=== PATIENT | female | born 1940 | race Two or more races ===

== ENCOUNTER 2022-06-22 16:40 | Emergency (ER) | payer OTHER ==
[~2022-06-22] VITALS: Ht 144.8 cm; Wt 45.4 kg
[2022-06-22] MEDS ORDERED: CRESTOR10 MG (16:52)
[2022-06-22] MEDS ORDERED: NORVASC5 MG (16:52)
[2022-06-22] MEDS ORDERED: SYNTHROID75 MCG (16:52)
[2022-06-22] MEDS ORDERED: PLAVIX75 MG (16:52)
[2022-06-22] MEDS ORDERED: PROAIR RESPICL90 MCG (16:53)
[2022-06-22] MEDS ORDERED: ATACAND4 MG (16:53)
== END 2022-06-22 20:53 | disposition home or self-care (01) ==
LOC: ER 16:40
DX: M12.531 Traumatic arthropathy, right wrist (principal); W18.2XXA Fall in (into) shower or empty bathtub, initial encounter; Y92.012 Bathroom of single-family (private) house as the place of occurrence of the external cause; Z88.0 Allergy status to penicillin; Z88.6 Allergy status to analgesic agent; E03.9 Hypothyroidism, unspecified; I10 Essential (primary) hypertension

== ENCOUNTER 2022-09-27 08:30 | Day surgery (SDC) | payer OTHER ==
[~2022-09-27] VITALS: Ht 149.9 cm; Wt 47.6 kg
[~2022-09-27 08:30] MED LIST: ATACAND4 MG; CRESTOR10 MG; NORVASC5 MG; PLAVIX75 MG; PROAIR RESPICL90 MCG; SYNTHROID75 MCG
[2022-09-27] MEDS ORDERED: BACTRIM DS TAB1 EACH PO (15:16)
[2022-09-27] MEDS ORDERED: OXYC1TAB9 PO (15:16)
== END 2022-09-27 17:10 | disposition home or self-care (01) ==
LOC: CIR.AMB 08:30
PROVIDERS: ATTEND Orthopaedic Surgery Sports Medicine
DX: M75.121 Complete rotator cuff tear or rupture of right shoulder, not specified as traumatic (principal); S46.211A Strain of muscle, fascia and tendon of other parts of biceps, right arm, initial encounter; I10 Essential (primary) hypertension; E03.9 Hypothyroidism, unspecified; Z88.0 Allergy status to penicillin; Z88.6 Allergy status to analgesic agent; Z20.822 Contact with and (suspected) exposure to COVID-19

== ENCOUNTER 2024-09-20 12:19 | Emergency (ER) | payer OTHER ==
[~2024-09-20] VITALS: Ht 134.6 cm; Wt 41.7 kg
[~2024-09-20 12:19] MED LIST changes: +BACTRIM DS TAB1 EACH PO; +OXYC1TAB9 PO
[2024-09-20] MEDS ORDERED: HYDRALAZINE HCL50 MG (12:53)
[2024-09-20 12:58] VITALS: BP 180/90; O2SAT 100
[2024-09-20] MEDS ORDERED: ACETAMINOPHEN 500 MG GEL..CAP PO ONE (14:30)
[2024-09-20 16:09] LABS: HEMATOCRIT 35.5 % (36.0-45.00); MEAN CELL VOLUME 97.5 fL (80.00-100.00); MEAN CORPUSCULAR HEMOGLOBIN 32.9 pg (27.00-32.0); MEAN CORPUSCULAR HGB CONC 33.7 g/dl (32.0-36.0); PLATELET COUNT 155 K/uL (150-450); RED BLOOD COUNT 3.64 M/uL (4.00-6.00); RED CELL DISTRIBUTION WIDTH 14.7 % (11.5-14.5)
[2024-09-20 16:32] LABS: ALBUMIN 3.8 gm/dL (3.4-5.0); BILIRUBIN TOTAL 0.32 mg/dL (0.3-1.2); CALCIUM 9.4 mg/dL (8.5-10.1); CREATININE SERUM 3.44 mg/dL (0.55-1.02); GFR 12.79; GLOBULINA 3.7 G/DL (2.4-3.5); POTASSIUM 3.52 mEq/L (3.5-5.1); TOTAL PROTEIN 7.5 gm/dL (6.4-8.2)
== END 2024-09-20 17:23 ==
LOC: ER 12:21
PROVIDERS: Nurse Practitioner Family
DX: S40.011A Contusion of right shoulder, initial encounter (principal); S70.01XA Contusion of right hip, initial encounter; S40.021A Contusion of right upper arm, initial encounter; W18.39XA Other fall on same level, initial encounter; Y93.89 Activity, other specified; Y92.89 Other specified places as the place of occurrence of the external cause; Z88.0 Allergy status to penicillin; Z88.6 Allergy status to analgesic agent